=== PATIENT | male | born 1980 | race Caucasian/White ===

== ENCOUNTER 2021-07-15 12:55 | Emergency (ER) | payer OTHER, SELFPAY ==
--- NOTE | ~2021-07-15 | XR_ITS ---
EXAMINATION: XR CHEST CLINICAL INFORMATION: Cough with Covid positive COMPARISON: None TECHNIQUE: Frontal view of the chest was obtained. FINDINGS: No significant abnormality is noted involving the heart, lungs, mediastinum, bony thorax or soft tissues. XR/XR chest 1V IMPRESSION: Unremarkable examination.
[2021-07-15 14:49] LABS: MANUAL DIFF FLAG NO
[2021-07-15 14:51] LABS: Basophils Percent Auto 0.6 % (0-2); Eosinophils Percent Auto 0.8 % (0-4); Hemoglobin 13.9 g/dl (14.0-18.0); Imm Gran Abs Auto 0.01 X10*3/uL (0.00-0.03); Imm Gran Pct Auto 0.3 % (0.0-0.4); Lymphocytes Absolute Auto 1.2 X10*3/uL (1.2-4.9); Lymphocytes Percent Auto 32.1 % (20-40); Mean Corpuscular HGB Conc 33.9 g/dl (31.0-36.0); Mean Corpuscular Hemoglobin 30.3 pg (27.0-33.0); Mean Corpuscular Volume 89.5 fL (80-98); Mean Platelet Volume 9.7 fL (9.4-12.4); Monocytes Absolute Auto 0.6 X10*3/uL (0.1-1.2); Monocytes Percent Auto 16.1 % (2-11); Neutrophils Absolute Auto 1.8 X10*3/uL (2.0-8.3); Neutrophils Percent Auto 50.1 % (45-73); Platelet Count 264 X10*3/uL (160-400); Red Blood Count 4.58 X10*6/uL (4.60-5.80); Red Cell Distribution Width 12.4 % (11.0-16.0); White Blood Count 3.6 X10*3/uL (4.8-10.8)
[2021-07-15 15:14] LABS: Anion Gap 12 (12-20); Blood Urea Nitrogen 11 mg/dL (9-16); Calcium 9.1 mg/dL (8.4-10.2); Carbon Dioxide 27 mmol/L (22-29); Chloride 105 mmol/L (96-108); Estimated Glomerular Filt Rate > 60; Glucose Random 95 mg/dL (60-115); Potassium 4.3 mmol/L (3.3-5.1); Sodium 140 mmol/L (135-145)
--- NOTE | 2021-07-15 17:46 | PC.NURSE ---
called x 3 in waiting room. No answer.
[2021-07-15 20:05] VITALS: BP 133/84; PULSE 87; RESP 16; TEMP 37; O2SAT 98; BMI 25.8
--- NOTE | 2021-07-15 20:07 | ED_ITS ---
HPI - URI/Sore Throat General Chief Complaint: General Medical <Racheal Abernathy PA-C - Last Filed: 07/15/21 20:13> Stated Complaint: body ache fever <CESAR Swanson Last Filed: 07/15/21 20:13> Time Seen by Provider: 07/15/21 16:47 <CESAR Swanson Last Filed: 07/15/21 20:13> Source: patient <Racheal Abernathy PA-C - Last Filed: 07/15/21 20:13> Mode of arrival: ambulatory <CESAR Swanson Last Filed: 07/15/21 20:13> Limitations: no limitations <Racheal Abernathy PA-C - Last Filed: 07/15/21 20:13> History of Present Illness HPI Narrative: Pt is a 41yo M with no sig past med hx c/o fevers tmax 103F last night, sore throat, dry cough and chest tightness x 3days. States is sick, after traveling to [place], was covid tested but hasn't rec'd result yet. Able to tolerate fluids. Is NOT Covid vaxxed. Denies nvd. <Racheal Abernathy PA-C - Last Filed: 07/15/21 20:13> MD elicited complaint: fever and cough <JENNI Kelley Last Filed: 07/15/21 21:40> Onset (ago): day(s) (4) <JENNI Kelley Last Filed: 07/15/21 21:40> Consistency: constant <JENNI Kelley Last Filed: 07/15/21 21:40> Severity: moderate <JENNI Kelley Last Filed: 07/15/21 21:40> Description of mucous: clear <JENNI Kelley Last Filed: 07/15/21 21:40> Able to tolerate fluids by mouth: Yes <JENNI Kelley Last Filed: 07/15/21 21:40> Exacerbating factors: exertion <JENNI Kelley Last Filed: 07/15/21 21:40> Relieving factors: OTC cold medicine <JENNI Kelley Last Filed: 07/15/21 21:40> Context: sick contacts <JENNI Kelley Last Filed: 07/15/21 21:40> Associated symptoms: fever, chills, myalgias, headache, nasal congestion, cough and shortness of breath <JENNI Kelley Last Filed: 07/15/21 21:40> Treatments prior to arrival: none <JENNI Kelley Last Filed: 07/15/21 21:40> Related Data Home Medications: Previous Rx's Medication Instructions Recorded albuterol sulfate 90 mcg/actuation 1 inh INHALATION QID PRN #6.7 g 07/15/21 aerosol inhaler prednisone 20 mg tablet 40 mg PO DAILY #10 tab 07/15/21 <CESAR Swanson Last Filed: 07/15/21 20:13> Allergies/Adverse Reactions: Allergies Allergy/AdvReac Type Severity Reaction Status Date / Time No Known Allergies Allergy Verified 07/15/21 20:10 <Racheal Abernathy PA-C - Last Filed: 07/15/21 20:13> Review of Systems Review of Systems: Constitutional: + Fever, + Chills ENT/Mouth: No sore throat, No Rhinorrhea, No Swallowing Difficulty Cardiovascular: No Chest Pain, + SOB Respiratory: + Cough, No Sputum, No Wheezing, + dyspnea Gastrointestinal: No Nausea, No Vomiting, No Diarrhea, No abdominal Pain Genitourinary: No Dysuria, No Urinary Frequency, No Hematuria Musculoskeletal: No joint pain, No Myalgias Skin: No Skin Lesions, No rash Neuro:+ Weakness, No Numbness, No Dizziness, + Headache Psych: No Anxiety/Panic, No Depression Heme/Lymph: No Bruising, No Lymphadenopathy <JENNI Kelley Last Filed: 07/15/21 21:40> PMF Past Medical History Attestation statement: The following information was validated with the patient. <JENNI Kelley Last Filed: 07/15/21 21:40> Medical History: Medical History No known health problems <CESAR Swanson Last Filed: 07/15/21 20:13> Social History Social History: Social History Advance Directives: No Advance Directives Information Provided: Yes <Racheal Abernathy PA-C - Last Filed: 07/15/21 20:13> Physical Exam Vital Signs: Vital Signs: Last Vital Signs Temp 98.6 F 07/15/21 20:05 Pulse 87 07/15/21 20:05 Resp 16 07/15/21 20:05 BP 133/84 07/15/21 20:05 Pulse Ox 98 07/15/21 20:05 Body Mass Index 25.8 <Racheal Abernathy PA-C - Last Filed: 07/15/21 20:13> Vital Signs: Last Vital Signs Temp 98.6 F 07/15/21 20:05 Pulse 87 07/15/21 20:05 Resp 16 07/15/21 20:05 BP 133/84 07/15/21 20:05 Pulse Ox 98 07/15/21 20:05 Body Mass Index 25.8 <JENNI Kelley Last Filed: 07/15/21 21:40> Appearance: Alert. Oriented X3. No acute distress. Eyes: Pupils equal, round and reactive to light. ENT: Pharynx normal. Neck: Normal inspection. Neck supple. CVS: Normal heart rate and rhythm. Pulses normal. Respiratory: No respiratory distress. Mild end expiratory wheeze in RLL, otherwise clear throughout. Speaks in complete sentences. Abdomen: Soft and nontender. +BS x4 Skin: Skin warm and dry. Normal skin color. Normal skin turgor. No rashes. Extremities: No lower extremity edema. No calf tenderness or redness or swelling Neuro: Oriented X 3. No motor deficit. No sensory deficit. <JENNI Kelley Last Filed: 07/15/21 21:40> Course Course Course Narrative: Rapid medical exam of a 41yo M unvaxxed for covid, c/o dry cough, fevers, sick after travel to [facility], labs done show low WBC count, will get COVID test and CXR. likely covid positive. ED provider to continue care. <CESAR Swanson Last Filed: 07/15/21 20:13> Reevaluation(s) Reevaluation #1: COVID positive. CXR clear. VS remain stable, SpO2 98%. He was been counseled on diagnosis, expected course and warning signs to return to the ER. Stable for d/c home. <JENNI Kelley - Last Filed: 07/15/21 21:40> MDM - URI/Sore Throat Lab Data Result diagrams: : 07/15/21 14:34 07/15/21 14:34 <JENNI Swanson-C - Last Filed: 07/15/21 20:13> Labs: Lab Results 07/15/21 07/15/21 07/15/21 Range/Units 14:34 14:34 20:11 WBC 3.6 L (4.8-10.8) X10*3/uL RBC 4.58 L (4.60-5.80) X10*6/uL Hgb 13.9 L (14.0-18.0) g/dl Hct 41.0 L (42-52) % MCV 89.5 (80-98) fL MCH 30.3 (27.0-33.0) pg MCHC 33.9 (31.0-36.0) g/dl RDW 12.4 (11.0-16.0) % Plt Count 264 (160-400) X10*3/uL MPV 9.7 (9.4-12.4) fL Immature Gran % (Auto) 0.3 (0.0-0.4) % Neut % (Auto) 50.1 (45-73) % Lymph % (Auto) 32.1 (20-40) % [place]gg % (Auto) 16.1 H (2-11) % Eos % (Auto) 0.8 (0-4) % Baso % (Auto) 0.6 (0-2) % Lymph # (Auto) 1.2 (1.2-4.9) X10*3/uL [place]gg # (Auto) 0.6 (0.1-1.2) X10*3/uL Eos # (Auto) 0.0 (0.0-0.4) X10*3/uL Baso # (Auto) 0.0 (0.0-0.2) X10*3/uL Abs Immat Gran (auto) 0.01 (0.00-0.03) X10*3/uL Absolute Neuts (auto) 1.8 L (2.0-8.3) X10*3/uL Absolute Nucleated RBC 0.000 (0.0-0.012) X10*3/uL Nucleated RBC % (auto) 0.0 (0.0-0.2) /100WBC Sodium 140 (135-145) mmol/L Potassium 4.3 (3.3-5.1) mmol/L Chloride 105 (96-108) mmol/L Carbon Dioxide 27 (22-29) mmol/L Anion Gap 12 (12-20) BUN 11 (9-16) mg/dL Creatinine 1.05 (0.5-1.4) mg/dL Estim Creat Clear Calc TNP Estimated GFR > 60 Random Glucose 95 (60-115) mg/dL Calcium 9.1 (8.4-10.2) mg/dL COVID-19 (HAMLET) Positive A (Negative) COVID-19 Clin Com See Note <Racheal Abernathy PA-C - Last Filed: 07/15/21 20:13> Lab Results 07/15/21 07/15/21 07/15/21 Range/Units 14:34 14:34 20:11 WBC 3.6 L (4.8-10.8) X10*3/uL RBC 4.58 L (4.60-5.80) X10*6/uL Hgb 13.9 L (14.0-18.0) g/dl Hct 41.0 L (42-52) % MCV 89.5 (80-98) fL MCH 30.3 (27.0-33.0) pg MCHC 33.9 (31.0-36.0) g/dl RDW 12.4 (11.0-16.0) % Plt Count 264 (160-400) X10*3/uL MPV 9.7 (9.4-12.4) fL Immature Gran % (Auto) 0.3 (0.0-0.4) % Neut % (Auto) 50.1 (45-73) % Lymph % (Auto) 32.1 (20-40) % Gregg % (Auto) 16.1 H (2-11) % Eos % (Auto) 0.8 (0-4) % Baso % (Auto) 0.6 (0-2) % Lymph # (Auto) 1.2 (1.2-4.9) X10*3/uL Gregg # (Auto) 0.6 (0.1-1.2) X10*3/uL Eos # (Auto) 0.0 (0.0-0.4) X10*3/uL Baso # (Auto) 0.0 (0.0-0.2) X10*3/uL Abs Immat Gran (auto) 0.01 (0.00-0.03) X10*3/uL Absolute Neuts (auto) 1.8 L (2.0-8.3) X10*3/uL Absolute Nucleated RBC 0.000 (0.0-0.012) X10*3/uL Nucleated RBC % (auto) 0.0 (0.0-0.2) /100WBC Sodium 140 (135-145) mmol/L Potassium 4.3 (3.3-5.1) mmol/L Chloride 105 (96-108) mmol/L Carbon Dioxide 27 (22-29) mmol/L Anion Gap 12 (12-20) BUN 11 (9-16) mg/dL Creatinine 1.05 (0.5-1.4) mg/dL Estim Creat Clear Calc TNP Estimated GFR > 60 Random Glucose 95 (60-115) mg/dL Calcium 9.1 (8.4-10.2) mg/dL COVID-19 (HAMLET) Positive A (Negative) COVID-19 Clin Com See Note <JENNI Kelley Last Filed: 07/15/21 21:40> Critical Care Time Critical Care Time Critical Care Time: No <JENNI Kelley Last Filed: 07/15/21 21:40> Discharge Plan Discharge Clinical Impression: COVID-19 <Racheal Abernathy PA-C - Last Filed: 07/15/21 20:13> Patient Disposition: Home, Self-Care <Racheal Abernathy PA-C - Last Filed: 07/15/21 20:13> Instructions: COVID-19 (Coronavirus Disease 2019) (ED) <Racheal Abernathy PA-C - Last Filed: 07/15/21 20:13> Additional Instructions: You were found to be COVID-19 POSITIVE today. Your chest x-ray and oxygen levels were normal. Rest. Drink plenty of fluids. Do not go out in public for the next 10 days. Take over the counter cold/flu medications as needed for your symptoms. Take Tylenol and/or Motrin as needed for fevers and body aches. Follow up with your doctor this week. If you shortness of breath worsens , if you develop difficulty breathing or any other concerning symptom come back to the ER for further evaluation. <Rcaheal Abernathy PA-C - Last Filed: 07/15/21 20:13> Prescriptions: New prednisone 20 mg tablet 40 mg PO DAILY Qty: 10 RF: 0 albuterol sulfate 90 mcg/actuation HFA aerosol inhaler 1 inh inhalation QID PRN (Reason: shortness of breath or wheezing) Qty: 6.7 RF: 0 <Racheal Abernathy PA-C - Last Filed: 07/15/21 20:13> Interventions: LWBS Worksheet Last Done: 07/15/21 17:54 <Racheal Abernathy PA-C - Last Filed: 07/15/21 20:13> Discharge Date/Time: 07/15/21 20:54 <CESAR Swanson Last Filed: 07/15/21 20:13>
[2021-07-15 20:28] LABS: COVID-19 Test Positive (Negative)
== END 2021-07-15 20:54 | disposition home or self-care (01) ==
PROVIDERS: Emergency Provider Internal Medicine
DX: Z79.899 Other long term (current) drug therapy (principal)
CPT/HCPCS: 36415; 71045; 80048; 85025; 87635; 99283

== ENCOUNTER 2025-10-21 11:53 | Emergency (ER) | payer OTHER, SELFPAY ==
--- NOTE | ~2025-10-21 | CT_ITS ---
CLINICAL HISTORY: R side head pressure tingling CT head without contrast Comparison: None Findings: No intracranial mass, midline shift, hydrocephalus, or acute hemorrhage. No CT evidence of acute ischemia. Visualized paranasal sinuses and mastoid air cells normal. Orbits unremarkable. No skull fracture Impression: 1. No acute intracranial abnormalities. This document has been electronically signed by: Aston Salguero MD on 10/21/2025 13:58:20
[2025-10-21 12:01] VITALS: BP 121/60; PULSE 66; RESP 18; TEMP 36.8; O2SAT 97; BMI 22.4
--- NOTE | 2025-10-21 12:05 | ED_ITS ---
HPI - General Adult General Chief complaint: General Medical Stated complaint: r side head tingling/pressure Time Seen by Provider: 10/21/25 13:58 History of Present Illness ED Provider: Natasha Simth NP HPI narrative: 45-year-old male medical history of mood disorder presents to the ED with chief complaint of 4 weeks of right-sided shooting pain near the parietal region of the head. Describes it as an electric shock shooting sensation on that side. It comes intermittently and lasts several minutes, maximum 30 minutes, then spontaneously resolves. He denies any head injury, dizziness or lightheadedness, episodes of syncope. Denies any migraine history. Denies any visual disturbances, diplopia. No nausea, vomiting. Does report some discomfort over the eye during the headaches. No alteration in mentation, and no changes in behavior. He denies any chest pain or pressure, shortness of breath or abdominal pain. No recent illnesses, cough. No fever or chills. No temporal pain or pulsating feeling. No drug use, alcohol use. Related Data Previous Rx's ?Medication ?Instructions ?Recorded albuterol sulfate 90 mcg/actuation 1 inh inhalation QI D PRN shortness 07/15/21 aerosol inhaler of breath or wheezing #6.7 g juvenal prednisone 20 mg tablet 40 mg (2 x 20 mg) PO DAILY # 10 tabs 07/15/21 Allergies Allergy/AdvReac Type Severity Reaction Status Date / Time No Known Allergies Allergy Verified 10/21/25 12:04 Review of Systems 2 Review of Systems: ROS is otherwise negative unless mentioned in HPI. [facility] Past Medical History Medical History No known health problems Social History Social History Advance Directives: No Advance Directives Information Provided: Yes Do you have a plan to hurt others: No Plan Physical Exam ED Exam Exam: Nursing notes and vital signs reviewed. Constitutional: Well-appearing, NAD. Alert. Oriented X3. Eyes: Pupils equal, round and reactive to light. EOMI. TMs pearly bhat bilaterally. ENT: Pharynx normal. Neck: Normal inspection. Neck supple. No C-spine tenderness. CVS: Normal heart rate and rhythm. Pulses normal. Respiratory: No respiratory distress. Breath sounds normal. Abdomen: Soft and nontender, nondistended. Skin: Skin warm and dry. Normal skin color. Extremities: No lower extremity edema. Neuro: Oriented X 3. No dysmetria, [id number] intact. No ataxia. Cranial nerves intact. No motor deficit. Vital Signs: Vital Signs - 24 hr 10/21/25 12:01 10/21/25 14:19 Temperature 98.3 F 98.3 F Pulse Rate 66 59 Respiratory Rate 18 16 Blood Pressure 121/60 114/51 L Pulse Oximetry 97 97 Oxygen Delivery Method Room Air Room Air BMI result Body Mass Index 22.4 Course Course Course Narrative: This is a Rapid Medical Examination (RME) performed by Whitley Garcia PA-C in triage. Full HPI, ROS, assessment and treatment plan per primary provider in the Main ED. Hx: 45 yo M here for eval of tingling/shock sensation to right temporal region x1 month, now becoming more of a pressure sensation. no head strike/injury/fall. no vision changes, N/V. Plan: labs, imaging Medications Administered Discontinued Medications Generic Name Dose Route Start Last Admin Trade Name Asafq PRN Reason Stop Dose Admin Sodium Chloride 1,000 mls @ 999 mls/hr 10/21/25 14:31 10/21/25 15:07 Ns IV 10/21/25 15:31 999 mls/hr .Q1H1M ONE Administration Ketorolac Tromethamine 15 mg 10/21/25 14:31 10/21/25 15:07 Ketorolac Tromethamine 15 Mg/Ml Vial IVPUSH 10/21/25 14:32 15 mg ONCE ONE Administration Prochlorperazine Edisylate 10 mg 10/21/25 14:31 10/21/25 15:07 Prochlorperazine Edisylate 10 Mg/2 Ml Vial IVPUSH 10/21/25 14:32 10 mg ONCE ONE Administration Medical Decision Making Medical Decision Making MDM Narrative: Upon assessment, he has a nonfocal neurological examination. He answers questions appropriately. He tells me the pain is not actively there, he is currently sitting with his I pad on his lap watching a video on the screen, an ear bud in the left ear. He denies any active complaints. Army was done by the triage provider, with a CT of the head showing no acute pathology. I did consider temporal arteritis over there is no temporal pain, there is a pulsating feeling over the temples. His lab work appears to be around his baseline, leukopenia with a white count of 4.7, improved since lab work from 2020 showing 3.6. His CRP is flat. TMs are without any signs of infection. Plan to administer a migraine cocktail and reassess. He will need to follow up with Neurology outpatient. 1540-- reporting significant improvement in his symptoms after medication interventions, therefore likely acute migraine. Given the reassuring workup, we will discharge home with outpatient Neurology follow up. Patient is agreeable to plan, expressed understanding. Provided return precautions. Differential Diagnosis Differential Diagnoses: The differential diagnosis associated with the presentation includes Migraine headache, ocular headache, intracranial hemorrhage, infarct Admission/Observation Consideration of admission/observation: Escalation of care including admission/observation considered (Not indicated.) Lab Data MDM Lab Attestation statement: I reviewed the patient's lab results. (Overall reassuring, leukopenia that appears to be chronic.) 10/21/25 12:26 10/21/25 12:26 Labs: Lab Results 10/21/25 Range/Units 12:26 WBC 4.7 L (4.8-10.8) X10*3/uL RBC 4.14 L (4.60-5.80) X10*6/uL Hgb 12.7 L (14.0-18.0) g/dl Hct 37.4 L (42.0-52.0) % MCV 90.3 (80.0-98.0) fL MCH 30.7 (27.0-33.0) pg MCHC 34.0 (31.0-36.0) g/dl RDW 13.1 (11.0-16.0) % Plt Count 285 (160-400) X10*3/uL MPV 9.5 (9.4-12.4) fL Immature Gran % (Auto) 0.0 (0.0-0.4) % Neut % (Auto) 44.8 L (45-73) % Lymph % (Auto) 45.7 H (20-40) % [place] % (Auto) 7.0 (2-11) % Eos % (Auto) 2.1 (0-4) % Baso % (Auto) 0.4 (0-2) % Lymph # (Auto) 2.2 (1.2-4.9) X10*3/uL [place] # (Auto) 0.3 (0.1-1.2) X10*3/uL Eos # (Auto) 0.1 (0.0-0.4) X10*3/uL Baso # (Auto) 0.0 (0.0-0.2) X10*3/uL Abs Immat Gran (auto) 0.00 (0.00-0.03) X10*3/uL Absolute Neuts (auto) 2.1 (2.0-8.3) x10*3/uL Absolute Nucleated RBC 0.000 (0.0-0.012) X10*3/uL Nucleated RBC % (auto) 0.0 (0.0-0.2) /100WBC ESR 2 (0-15) MM/HR Sodium 143 (135-145) mmol/L Potassium 3.8 (3.3-5.1) mmol/L Chloride 108 (96-108) mmol/L Carbon Dioxide 28 (22-29) mmol/L Anion Gap 11 L (12-20) BUN 14 (9-16) mg/dL Creatinine 1.04 (0.5-1.4) mg/dL Estim Creat Clear Calc 85.5 Estimated GFR > 60 Random Glucose 101 (60-115) mg/dL Calcium 9.0 (8.4-10.2) mg/dL Magnesium 1.9 (1.6-2.6) mg/dL Total Bilirubin 0.5 (0.0-1.0) mg/dL AST 24 (5-37) U/L ALT 21 (0-40) U/L Alkaline Phosphatase 68 (39-117) U/L C-Reactive Protein < 0.10 (< or = 0.50) mg/dL Total Protein 6.9 (6.5-8.0) g/dL Albumin 4.4 (3.5-5.0) g/dL Radiology Impression Discussion of test interpretation with radiology: I have reviewed the radiologist's reading. Radiologist Impression: CT Head: Impression: 1. No acute intracranial abnormalities. Independent Historian None External Record Review External record reviewed: Other (prior ER visit) Social Determinants Patient?s care significantly limited by Social Determinants of Health including: Problems related to employment Discharge Plan Discharge Clinical Impression: Headache Qualifiers: Headache type: unspecified Headache chronicity pattern: acute headache I ntractability: intractable Qualified Code(s): R51.9 - Headache, unspecified Patient Disposition: Home, Self-Care Instructions: Acute Headache (DC) Additional Instructions: As we discussed, the CT scan of your head today shows no acute intracranial abnormalities. Your lab work was overall reassuring as well. You received medications in the ED that seemed to improve your headache. You may use Tylenol, ibuprofen if you have any recurrent headaches. We do recommend that you follow up outpatient with Neurology. If you develop any worsening complaints at any time, please seek re-evaluation in the ED. Prescriptions: No Action prednisone 20 mg tablet 40 mg PO DAILY Qty: 10 0RF albuterol sulfate 90 mcg/actuation HFA aerosol inhaler 1 inh inhalation QID PRN (Reason: shortness of breath or wheezing) Qty: 6.7 0RF Referrals: [facility] [Provider Group] Print Language: Albanian
[2025-10-21 12:31] LABS: MANUAL DIFF FLAG NO
[2025-10-21 12:34] LABS: Hematocrit 37.4 % (42.0-52.0); Hemoglobin 12.7 g/dl (14.0-18.0); Imm Gran Abs Auto 0.00 X10*3/uL (0.00-0.03); Imm Gran Pct Auto 0.0 % (0.0-0.4); Lymphocytes Absolute Auto 2.2 X10*3/uL (1.2-4.9); Mean Corpuscular HGB Conc 34.0 g/dl (31.0-36.0); Mean Corpuscular Hemoglobin 30.7 pg (27.0-33.0); Mean Corpuscular Volume 90.3 fL (80.0-98.0); NRBC Abs Auto 0.000 X10*3/uL (0.0-0.012); NRBC Pct Auto 0.0 /100WBC (0.0-0.2); Platelet Count 285 X10*3/uL (160-400); Red Blood Count 4.14 X10*6/uL (4.60-5.80); White Blood Count 4.7 X10*3/uL (4.8-10.8)
[2025-10-21 12:51] LABS: Alanine Aminotransferase 21 U/L (0-40); Albumin Level 4.4 g/dL (3.5-5.0); Alkaline Phosphatase 68 U/L (39-117); Anion Gap 11 (12-20); Aspartate Amino Transferase 24 U/L (5-37); Blood Urea Nitrogen 14 mg/dL (9-16); Calcium 9.0 mg/dL (8.4-10.2); Carbon Dioxide 28 mmol/L (22-29); Chloride 108 mmol/L (96-108); Creatinine Clr Calc Pharmacy 85.5; Estimated Glomerular Filt Rate > 60; Magnesium 1.9 mg/dL (1.6-2.6); Potassium 3.8 mmol/L (3.3-5.1); Sodium 143 mmol/L (135-145); Total Protein 6.9 g/dL (6.5-8.0)
[2025-10-21 13:16] LABS: Erythrocyte Sedimentation Rate 2 MM/HR (0-15)
--- OUTSIDE RECORDS SUMMARY | 2025-10-21 13:56 | XMS_ITS | Clinical Summary ---
Author Organization [facility] ity Address [address] [place] [address] Care Team Providers Care Quality Review Trainer Name Role Phone Kuldeep Nicole MD Primary Care Provider [phone] Allergies No known active allergies Medications albuterol HFA (PROAIR HFA ; PROVENTIL HFA ; VENTOLIN HFA) 90 mcg/actuation inhaler Inhale 2 Puffs into the lungs 4 times daily as needed for Cough, Wheezing or Shortness of Breath. 2 Active fluocinonide (LIDEX) 0.05 % cream Apply twice a day for the next 2 weeks to affected area. After apply spraingly afterwards, 2 Active gabapentin (NEURONTIN) 300 mg capsule TK 1 C PO BID 9 Active ibuprofen (ADVIL,MOTRIN) 800 mg tablet Take 1 Tab by mouth every 8 hours as needed for Pain. 9 Active prazosin (MINIPRESS) 5 mg capsule TK ONE C PO QHS PRF SLEEP AND AXIETY 9 Active sertraline (ZOLOFT) 100 mg tablet TK 1 T PO QAM WITH FOOD 9 Active zolpidem (AMBIEN) 10 mg tablet Take 10 mg by mouth at bedtime. 1 Active Active Problems Problem Noted Date Diagnosed Date Hypercholesteremia 03/04/2020 Childhood asthma 03/01/2020 Overview (11/28/2024): Not an issue anymore Chronic back pain 03/01/2020 Overweight (BMI 25.0-29.9) 03/01/2020 PTSD (post-traumatic stress disorder) 11/28/2019 Immunizations Immunization Administration Dates Next Due Influenza trivalent, with pr eservative (Fluzone; Afluria) 6mo and older 01/31/2020 Tdap Tetanus diptheria acell ular pertussis (Boostrix; Adacel) 7yo and older 03/01/2020 Surgical History Surgery Date Site/Laterality Comments OTHER SURGICAL HISTORY 2019 PROCEDURE: ---- OTHER ----; COMMENT: removal of subcutaneous mass right upper arm near elbow, nothing to worry about Family History Medical History Relation Name Comments Bipolar disorder Brother 1 Other: peripheral vascular disease Brother 1 in wheelchair Diabetes Father Hypertension Father No Known Problems Maternal Grandfather No Known Problems Maternal Grandmother Diabetes Mother No Known Problems Paternal Grandfather No Known Problems Paternal Grandmother No Known Problems Son 1 15 No Known Problems Son 2 13 No Known Problems Son 3 11 Asthma Son 4 6 No Known Problems Son 5 1 No Known Problems Son 6 2 months Relation Name Status Comments Brother 1 Alive Brother 2 Alive Brother 3 Alive Father Alive Maternal Grandfather Maternal Grandmother Mother Alive Paternal Grandfather Paternal Grandmother Sister Alive Son 1 15 Alive Son 2 13 Alive Son 3 11 Alive Son 4 6 Alive Son 5 1 Alive Son 6 2 months Alive Social History Tobacco Use Types Packs/Day Years Used Date Smoking Tobacco: Never Smokeless Tobacco: Never Alcohol Use Standard Drinks/Week Comments No 0 (1 standard drink = 0.6 oz pur e alcohol) Sex and Gender Information Value Date Recorded Sex Assigned at Not on file Legal Sex Male 8:27 AM EST Gender Identity Not on file Sexual Orientation Not on file Obstetrics History Plan of Treatment Upcoming Encounters Date Type Department Care Team (Late st Contact Info) Description 11/07/2025 12:00 PM EST Office Visit Adult Medicine [facility] [address], [place] [phone] Ajay Szymanski MD [address], [place] Health Maintenance Due Date Last Done Comments Hepatitis B Vaccines (1 of 3 - 19+ 3-dose series) 2000 Pneumococcal Vaccine: Pediat rics (0 to 5 Years) and At-Risk Patients (6 to 49 Years) (1 of 2 - PCV) 2000 HPV Vaccines (1 - 3-dose SCD M series) 2008 HIV Screening 10/26/2022 Hepatitis C Screening 10/26/2022 Medicare Annual Wellness Visit 10/26/2022 Social Influencers of Health Screening 10/26/2022 Depression Screening 11/23/2024 Cholesterol Screening (Lipid Panel) 03/01/2025 03/01/2020 COVID-19 Vaccine (1 - 2024-2 6 season) 2025 Influenza Vaccine (#1) 2025 01/31/2020 DTaP,Tdap,and Td Vaccines (2 - Td or Tdap) 03/01/2030 03/01/2020 RSV Immunization Adult Patie nts (1 - 1-dose 75+ series) 2056 HIB Vaccines Aged Out No longer eligi ble based on patient's age to complete this topic Hepatitis A Vaccines Aged Out No long er eligible based on patient's age to complete this topic IPV Vaccines Aged Out No longer eligi ble based on patient's age to complete this topic MMR Vaccines Aged Out No longer eligi ble based on patient's age to complete this topic Meningococcal ACWY Vaccine Aged Out N o longer eligible based on patient's age to complete this topic Meningococcal B Vaccine Aged Out No l onger eligible based on patient's age to complete this topic RSV Immunization Patients Un francesca 20 months Aged Out No longer eligible b ased on patient's age to complete this topic Varicella Vaccines Aged Out No longer eligible based on patient's age to complete this topic Procedures Procedure Name Priority Date/Time Associated Diagnosis Comments LIPID PANEL Routine 03/01/2020 from Last 3 Months or Most Recently Relevant to Health Maintenance Results * (ABNORMAL) Lipid panel (03/01/2020) LDL/HDL Ratio 5(A) 0 - 4 Triglycerides 112 0 - 150 mg/dL Cholesterol 205(A) 0 - 200 mg/dL HDL 45 >=40 mg/dL LDL Cholesterol 138(A) 0 - 100 mg/dL Blood Venous blood specimen / Unknown us Historical Provider LAB BLOOD ORDERABLES Franci l Result from Last 3 Months or Most Recently Relevant to Health Maintenance Insurance [facility] MEDIC[facility] Member Subscriber Plan / Payer (Ef fective 2019-Present) Name:JOSIAH GIANG Relation to Subscriber:Self Name:Josiah Martinez Payer ID:[id number] Group ID:[id number] Type:Not on file Address: [place] [address] [address] [id number] Care Teams Quality Review Trainer Relationship Specialty Start Date End Date Kuldeep Nicole MD PCP - General Internal Medicine 07/15/21
[2025-10-21 14:19] VITALS: BP 114/51; PULSE 59; RESP 16; TEMP 36.8; O2SAT 97
[2025-10-21 15:49] VITALS: BP 114/51; PULSE 59; RESP 16; TEMP 36.8; O2SAT 97
== END 2025-10-21 15:50 | disposition home or self-care (01) ==
PROVIDERS: Physician Assistant Medical; Emergency Provider Emergency Medicine
DX: R51.9 Headache, unspecified (principal); R11.2 Nausea with vomiting, unspecified; Z79.899 Other long term (current) drug therapy
CPT/HCPCS: 36415; 70450; 80053; 83735; 85025; 85652; 86140; 96361; 96374; 96375; 99284; J0737; J1885

== ENCOUNTER → 2025-10-21 12:05 | Outpatient (BNV) | payer OTHER, SELFPAY | PROVIDERS: Visit Provider Radiology Diagnostic Radiology | DX: R51.9 Headache, unspecified (principal); R20.2 Paresthesia of skin | CPT/HCPCS: 70450 ==

== ENCOUNTER 2025-11-03 14:02 | Outpatient (AMB) | payer OTHER, SELFPAY ==
--- NOTE | 2025-11-03 14:07 | MHC.PC.OV ---
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 Required: No Accompanied by: Self / Same As Patient Allergies No Known Allergies Allergy (Verified 11/03/25 14:08) Medication List - Last Reconciled 11/03/25 by Ramon Hwang MD gabapentin 300 mg PO BID prazosin 5 mg PO BEDTIME sertraline 200 mg PO QAM trazodone 50 mg PO BEDTIME zolpidem 10 mg PO BEDTIME PRN Tobacco use date assessed: 11/03/25 Dental Screening Dental Screen Date: 11/03/25 Did you have a dental visit in the last 12 months?: No Did you have a dental problem in the last 6 months where you did not have access to dental care?: No Was dental information given to patient?: No HPI HPI Comments History of Present Illness Details History of Present Illness The patient is a 45 year old male presenting with evaluation of headaches and hip pain. Headache: The patient reports experiencing headaches for a few months. Approximately two weeks ago, he presented to the emergency department for a right-sided headache, where he received medication that provided relief. The headaches recur intermittently, are not constant, and feel like a cramp before resolving. He was advised to see a neurologist but requires a referral from a primary care physician first. He uses glasses for driving due to color blindness and had an eye exam about a year ago. Hip Pain: For the past month, the patient has experienced pain in his hip area, which prompted him to stop running. He describes the pain as being located on the side and front of the hip, without radiation down the leg. He has been managing the pain with a massage gun but has not tried heat therapy. Anxiety and Insomnia: The patient has a history of anxiety and stress, for which he takes medication prescribed by his psychiatrist, Dr. Julian Mckeon. He also sees a therapist, Adilene Crowlye. An incident in [place] years ago affected him emotionally and mentally. He takes Sertraline 100 mg, which he believes is to help him sleep, and also takes trazodone and zolpidem. Gabapentin and prazosin are listed in his medications, but he is unsure if he is currently taking prazosin. He is not currently taking prednisone, which is listed in his record. Surgical History: - The patient denies any history of surgeries. Medications: - Sertraline 100 mg, for sleep - Prazosin, for anxiety and stress - Gabapentin - Trazodone - Zolpidem Social History: - Substance Use: Denies smoking, alcohol use, and illicit drug use. 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 - Exercise: The patient was running but stopped about a month ago due to hip pain; he continues to exercise. Family History: - Denies any family history of cancer in parents or siblings. Past Medical History - The patient denies any significant past medical history, stating he is in good physical health. - He has a history of anxiety and stress related to an emotional/mental health incident in [place] years ago. - He receives psychiatric care from Dr. Julian Mckeon and therapy from Adilene Crowley. Health Maintenance - The last comprehensive blood analysis was some time ago. - Blood was drawn last week, but the purpose was unknown. - An eye exam was performed about a year ago. [facility] Medical History (Updated 11/03/25 @ 19:21 by Ramon Hwang MD) Sleep disturbance Insomnia Anxiety Rt inguinal pain Right hip pain No known health problems Family History (Updated 11/03/25 @ 14:22 by Mack Sinha MA) Father Diabetes Low blood sugar Kidney problem Mother Pulmonary fibrosis Diabetes Low blood sugar Heart problem Social History Housing: Apartment Patient Tobacco Use Status: Never used Tobacco service: No Current occupational status: disabled Cognitive needs: No Hearing needs: No Vision needs: Yes (rx glasses) Questionnaire PHQ-9 Over the last 2 weeks, how often have you been bothered by any of the following problems? 1. Little interest or pleasure in doing things: not at all 2. Feeling down, depressed, or hopeless: several days 3. Trouble falling or staying asleep, or sleeping too much: not at all 4. Feeling tired or having little energy: not at all 5. Poor appetite or overeating: not at all 6. Feeling bad about yourself - or that you are a failure or have let yourself or your family down: not at all 7. Trouble concentrating on things, such as reading the newspaper or watching television: not at all 8. Moving or speaking so slowly that other people could have noticed. Or the opposite - being so fidgety or restless that you have been moving around a lot more than usual: not at all 9. Thoughts that you would be better off or of hurting yourself in some way: not at all Total score: 1 Source: Developed by Drs. Jesu Riley, Anabelle Rojas, Ravindra Soler and colleagues, with an educational rod from [employer]. Thrive Questionnaire Date Thrive assessed: 11/03/25 I am a: Patient What is your living situation today?: I have a steady place to live Within the past 12 months, did the food you bought not last and you didn't have the money to get more?: Often true Within the past 12 months, did you worry whether your food would run out before you got money to buy more?: I choose not to answer this question Do you have trouble paying for medicines?: No Do you have trouble getting transportation to medical appointments?: No Do you have trouble paying your heating and electricity bill?: No Do you have trouble taking care of your child, family member or friend?: No Are you currently unemployed and looking for a job?: No Are you interested in more education?: No Please select the resources that you would like help with: None Currently or been in a relationship where the following occur: No concerns reported THRIVE Score: 1 AUDIT C Alcohol Use Questionnaire (AUDIT-C) 1. How often do you have a drink containing alcohol?: Never Total Score: 0 AZUL-7 AMB Questionnaire AZUL-7 Date AZUL - 7 assessed: 11/03/25 Feeling nervous, anxious, or on edge: 0 = Not at all Not being able to stop or control worryin = Not at all Worrying too much about different things: 0 = Not at all Trouble relaxin = Not at all Being so restless that it is hard to sit still: 0 = Not at all Becoming easily annoyed or irritable: 0 = Not at all Feeling afraid as if something awful might happen: 0 = Not at all Total AZUL-7 score (0-4 normal; 5-9 mild; 10-14 moderate; 15-21 severe): 0 Source: Developed by Drs. Jesu Riley, Anabelle Rojas, Ravindra Soler and colleagues, with an educational rod from [employer]. Review of Systems Narrative Review of Systems - General: Denies any issues with his physical health. - HEENT: Reports intermittent, cramping right-sided headaches. - Eyes: Reports color blindness. - Musculoskeletal: Reports pain in the hip and thigh area that has prevented him from running. - Neurological: Denies other neurological symptoms. - Psychiatric: Reports a history of anxiety and stress. - Genitourinary: Reports normal urination. - Gastrointestinal: Reports normal bowel movements. 10-point ROS reviewed and negative except as noted in HPI Physical exam (Primary Care) Vital Signs: Last Vital Signs Temp 98 F 11/03/25 14:08 Pulse 62 11/03/25 14:08 Resp 16 11/03/25 14:08 BP 130/72 11/03/25 14:08 Pulse Ox 98 11/03/25 14:08 Oxygen Delivery Method Room Air 11/03/25 14:08 BMI result Body Mass Index 22.3 Tobacco/Smoking Status: Tobacco use Status Tobacco use date assessed 11/03/25 11/03/25 14:12 Patient Tobacco Use Status Never used Tobacco 11/03/25 14:12 PHQ-9: PHQ-9 Score PHQ-9: Total score 1 11/03/25 14:12 Thrive Assessment: Date of Thrive Assessment Date Thrive assessed 11/03/25 11/03/25 14:12 Currently or been in a relationship where the following occur: No concerns reported Narrative Physical Exam General: Well-appearing, in no acute distress. Vital signs: Within normal limits. HEENT: Normocephalic, atraumatic. PERRLA, EOMI. Conjunctiva clear, sclera anicteric. Oropharynx clear, mucous membranes moist. TMs intact bilaterally. Neck: Supple, no lymphadenopathy, no thyromegaly, no JVD or carotid bruits. Cardiovascular: RRR, normal S1/S2, no murmurs, rubs, or gallops. Peripheral pulses 2+ and symmetric. No edema. Respiratory: Lungs clear to auscultation bilaterally, no wheezes, rales, or rhonchi. Normal effort. Abdomen: Soft, non-tender, non-distended. Normoactive bowel sounds. No hepatosplenomegaly, no masses. MSK: Full range of motion, no joint swelling or deformity. Normal gait. Reports pain in the femur area and side, possibly related to inflammation. Skin: Warm, dry, intact. No rashes, lesions, or pallor. Neuro: Alert and oriented x3. Cranial nerves II-XII intact. Strength 5/5 throughout. Sensation intact. Reflexes 2+ symmetric. Normal coordination and gait. Psych: Appropriate mood and affect. Normal judgment and insight. Reports seeing a psychiatrist and therapist for emotional and mental health support. Coding Level of Care Code New Pt Level 4 (64632) Add On Problem Visit Only Diagnoses Headache R51.9 Headache chronicity pattern: acute headache Headache type: unspecified Intractability: intractable Right hip pain M25.551 Rt inguinal pain R10.31 Anxiety F41.9 Insomnia G47.00 Sleep disturbance G47.9 Assessment & Plan Assessment & Plan (1) Headache: Code(s): R51.9 - Headache, unspecified Category: Medical Qualifiers: Headache chronicity pattern: acute headache Headache type: unspecified Intractability: intractable Qualified Code(s): R51.9 - Headache, unspecified (2) Right hip pain: Code(s): M25.551 - Pain in right hip Category: Medical (3) Rt inguinal pain: Code(s): R10.31 - Right lower quadrant pain Category: Medical (4) Anxiety: Code(s): F41.9 - Anxiety disorder, unspecified Category: Medical (5) Insomnia: Code(s): G47.00 - Insomnia, unspecified Category: Medical (6) Sleep disturbance: Code(s): G47.9 - Sleep disorder, unspecified Category: Medical Plan Consent The patient consented to a blood draw for comprehensive lab work. The rationale for each test was explained, including a complete blood count (CBC), comprehensive metabolic panel (CMP), hemoglobin A1c, hepatitis panel, HIV test, lipid panel, magnesium, syphilis screen, thyroid panel, urinalysis, vitamin B12, folate, and vitamin D levels, to obtain a baseline and investigate potential causes for his headaches. Patient was informed and verbally consented to the use of an ambient scribe for clinic note documentation during this visit. Plan 1. Headache - Comprehensive blood work will be performed to investigate underlying causes, such as anemia or vitamin deficiencies. - The lab panel will include a CBC, CMP, HbA1c, hepatitis B and C, HIV, lipid panel, magnesium, syphilis, thyroid panel, UA, vitamin B12, folate, and vitamin D. - A referral will be provided for a neurology consultation as previously recommended. - A follow-up appointment is scheduled in two weeks to review the lab results. 2. Hip Pain - Initial management will focus on conservative measures for likely inflammation. - The patient is advised to apply heat to the affected area using a heating pad. - Ibuprofen 800 mg will be prescribed for inflammation. - Recommended using bujr-tdz-[id number] BioFreeze topical analgesic. - If symptoms do not improve with these measures, a referral for physical therapy will be considered. 3. Medication Management - Prednisone will be discontinued from the patient's medication list as he is not currently taking it and the indication is unclear. Discussion Notes I discussed the plan to investigate the patient's headaches with comprehensive lab work to rule out common underlying causes such as vitamin deficiencies or anemia. I explained the rationale for each blood test ordered. For his hip pain, I explained that it is likely due to inflammation of a muscle that is frequently used. I recommended conservative management with heat, [id number]-[id number] BioFreeze, and a prescription for ibuprofen 800 mg. I informed him that if these measures do not provide relief, we will consider a referral to physical therapy. We agreed to follow up in two weeks to review his lab results and reassess his symptoms. Patient Instructions - Proceed to the lab for a blood draw today. We will test for a wide range of things, including your blood counts, kidney and liver function, sugar levels, cholesterol, and various vitamin levels to see if we can find a cause for your headaches. - For your hip pain, apply a heating pad to the area. - A prescription for Ibuprofen 800 mg will be sent to your pharmacy. Take this as directed to help with the inflammation in your hip. - You can also buy an efwf-edz-nsykkjb cream called BioFreeze, which may help with the pain. - If the pain does not get better with heat and medication, we will discuss starting physical therapy. - Please schedule a follow-up appointment in two weeks to go over your lab results. Medical Decision Making The patient is a 45-year-old male presenting with intermittent headaches and new-onset hip pain. The initial approach to his headaches, which have been present for months and prompted a recent ED visit, is to rule out common systemic causes. A comprehensive lab panel, including CBC, CMP, A1c, lipids, and vitamin levels (B12, D, folate), was ordered to screen for metabolic, endocrine, or nutritional deficiencies that could contribute to his symptoms. A referral to neurology is also warranted given the patient's request and the need for specialized evaluation. The hip pain is likely inflammatory, possibly related to muscular strain from exercise, as it is localized and non-radiating. The initial plan involves conservative management with NSAIDs (Ibuprofen 800mg), topical analgesics (BioFreeze), and heat application. Physical therapy will be the next step if symptoms do not resolve. Medication reconciliation revealed the patient is no longer taking prednisone, so it was discontinued. He will follow up in two weeks to review lab results and reassess his clinical status. Total Time Statement 30 min Total time spent caring for the patient today includes pre-visit chart review, documentation, review of laboratory and diagnostic imaging results, medication reconciliation, medically necessary evaluation, counseling on diagnoses, care coordination, ordering appropriate tests and medications, review of tests performed by other providers, reporting test results to the patient, and communication with other healthcare providers. Orders: Orders Complete Blood Count Auto Diff Today Z13.9 - Encounter for screening, unspecified Syphilis Screen Today Z13.9 - Encounter for screening, unspecified TSH reflex Free T4 Today Z13.9 - Encounter for screening, unspecified HIV Ab/Ag Today Z13.9 - Encounter for screening, unspecified Lipid Panel Today Z13.9 - Encounter for screening, unspecified Vitamin B12 and Folate Today Z13.9 - Encounter for screening, unspecified Magnesium Today Z13.9 - Encounter for screening, unspecified Hepatitis B Surface Antibody Today Z13.9 - Encounter for screening, unspecified Vitamin D 25-OH (D2 and D3) Today Z13.9 - Encounter for screening, unspecified Hepatitis B Surface Antigen Today Z13.9 - Encounter for screening, unspecified Comprehensive Met. Panel Today Z13.9 - Encounter for screening, unspecified Hepatitis C Antibody Today Z13.9 - Encounter for screening, unspecified UA CC w/rflx Micro + Cult Today Z13.9 - Encounter for screening, unspecified Hemoglobin A1c Today Z13.9 - Encounter for screening, unspecified
[2025-11-03 14:08] VITALS: BP 130/72; PULSE 62; RESP 16; TEMP 36.6; O2SAT 98; BMI 22.3
--- OUTSIDE RECORDS SUMMARY | 2025-11-03 19:26 | XMS_ITS | Clinical Summary ---
Author Organization [facility] ity Address [address] [place] [address] Care Team Providers Care Pearl Cutter Name Role Phone Kuldeep Nicole MD Primary Care Provider [phone] Allergies No known active allergies Medications albuterol [...] on file Sexual Orientation Not on file Plan of Treatment Upcoming Encounters Date Type Department Care Team (Late st Contact Info) Description 11/07/2025 12:00 PM EST Office Visit Adult Medicine [address] [phone] Ajay Szymanski MD [address], [place] Health Maintenance Due Date Last Done [...] Most Recently Relevant to Health Maintenance Insurance [facility] MEDIC[facility] Member Subscriber Plan / Payer (Ef fective 2019-Present) Name:JOSIAH GIANG Relation to Subscriber:Self Name:Josiah Martinez Payer ID:[id number] Group ID:[id number] Type:Not on file Address: [place] [address] [address] [id number] Care Teams Pearl Cutter Relationship Specialty Start Date End Date Kuldeep Nicole MD PCP - General Internal Medicine 07/15/21
== END 2025-11-03 15:01 | disposition home or self-care (01) ==
LOC: HO.HMCFMS 14:02
PROVIDERS: Visit Provider Student in an Organized Health Care Education/Training Program
DX: R51.9 Headache, unspecified (principal); M25.551 Pain in right hip; R10.31 Right lower quadrant pain; F41.9 Anxiety disorder, unspecified; G47.00 Insomnia, unspecified; G47.9 Sleep disorder, unspecified

== ENCOUNTER 2025-11-03 14:02 | Outpatient (REF) | payer OTHER, SELFPAY ==
[2025-11-03 17:39] LABS: MANUAL DIFF FLAG NO
[2025-11-03 17:47] LABS: Hematocrit 38.9 % (42.0-52.0); Hemoglobin 12.9 g/dl (14.0-18.0); Imm Gran Abs Auto 0.01 X10*3/uL (0.00-0.03); Imm Gran Pct Auto 0.2 % (0.0-0.4); Lymphocytes Absolute Auto 1.9 X10*3/uL (1.2-4.9); Mean Corpuscular HGB Conc 33.2 g/dl (31.0-36.0); Mean Corpuscular Hemoglobin 30.4 pg (27.0-33.0); Mean Corpuscular Volume 91.7 fL (80.0-98.0); NRBC Abs Auto 0.000 X10*3/uL (0.0-0.012); NRBC Pct Auto 0.0 /100WBC (0.0-0.2); Platelet Count 326 X10*3/uL (160-400); Red Blood Count 4.24 X10*6/uL (4.60-5.80); White Blood Count 5.2 X10*3/uL (4.8-10.8)
[2025-11-03 17:49] LABS: Appearance Urine Clear; Glucose Urine UA Negative (Negative); PH 6.5 (5.0-9.0); Specific Gravity - Urine 1.025 (1.005-1.025)
[2025-11-03 18:09] LABS: Alanine Aminotransferase 25 U/L (0-40); Albumin Level 4.7 g/dL (3.5-5.0); Alkaline Phosphatase 76 U/L (39-117); Anion Gap 10 (12-20); Aspartate Amino Transferase 31 U/L (5-37); Blood Urea Nitrogen 15 mg/dL (9-16); Calcium 9.4 mg/dL (8.4-10.2); Carbon Dioxide 30 mmol/L (22-29); Chloride 105 mmol/L (96-108); Cholesterol 235 mg/dL (<200); Estimated Glomerular Filt Rate > 60; HDL Cholesterol 64 mg/dL (>40); Magnesium 2.3 mg/dL (1.6-2.6); Potassium 3.6 mmol/L (3.3-5.1); Sodium 141 mmol/L (135-145); Total Protein 7.3 g/dL (6.5-8.0); Triglycerides 86 mg/dL (<150)
[2025-11-03 18:33] LABS: Folate 8.8 ng/mL (> or = 4.0); Vitamin B12 504 pg/mL (200-900)
[2025-11-04 07:29] LABS: Syphilis Screen Nonreactive (Nonreactive)
[2025-11-04 07:50] LABS: HBS Num1 0.00 mIU/mL (0-7.99); HBsAGNum1 0.41 S/CO (0.00-0.99); HIV Num 1 0.08 S/CO (0.00-0.99); Hepatitis B Surface Antigen Negative (Negative); ~HepC Num1 0.09 S/CO (0.00-0.79); ~Hepatitis B Surface Antibody NONREACTIVE (Nonreactive); ~Hepatitis C Antibody Nonreactive (Nonreactive)
[2025-11-07 18:52] LABS: Vitamin D 25-OH, D2 <4 ng/mL; Vitamin D 25-OH, D3 20 ng/mL; Vitamin D 25-OH, Total 20 ng/mL (30-100)
== END 2025-11-03 14:03 | disposition home or self-care (01) ==
LOC: HO.HKASLDS 14:02
PROVIDERS: PCP Student in an Organized Health Care Education/Training Program; Visit Provider Student in an Organized Health Care Education/Training Program
DX: M25.551 Pain in right hip (principal); R10.31 Right lower quadrant pain; R51.9 Headache, unspecified; F41.9 Anxiety disorder, unspecified; G47.00 Insomnia, unspecified; G47.9 Sleep disorder, unspecified; Z13.31 Encounter for screening for depression; Z13.39 Encounter for screening examination for other mental health and behavioral disorders; Z13.6 Encounter for screening for cardiovascular disorders; Z13.1 Encounter for screening for diabetes mellitus
CPT/HCPCS: 36415; 80053; 80061; 81003; 82306; 82607; 82746; 83036; 83735; 84443; 85025; 86706; 86780; 86803; 87340; 87389; 96127; 99202